=== PATIENT | male | born 1980 | race Caucasian/White ===

== ENCOUNTER 2018-03-15 11:42 | Inpatient (IN) | payer MEDICAID, SELFPAY ==
[2018-03-15 12:14] VITALS: BMI 22.7
--- NOTE | 2018-03-15 12:23 | HP.PCM_ITS ---
Problem List (1) Opiate withdrawal Status: Acute (2) Heroin use Status: Acute History of Present Illness Date of Admission: 03/15/18 Chief Complaint: Nause, vomiting - 1 day The patient is a 37 year old M with past medical history of polysubstance use including heroine use, last used heroin 3 days ago, typically uses 2 g a day, comes in with complaints of diarrhea, hot and cold flashes, nausea, vomiting, muscle pain, nasal congestion ongoing for the past 3 days. Has Cina score on admission is 19. He denied any pain or shortness of breath or palpitation. He has restless legs. Denies any suicidal or homicidal ideation. Past Medical History Allergies No Known Allergies Allergy (Verified 03/15/18 12:21) Surgical History: - - Status post dental surgery, history of stent to the kidney status post removal Psychiatric History: No pertinent psych hx Lives: Alone Smoking Status: Current every day smoker Tobacco Use: Cigarettes Alcohol: None Drugs: Cocaine, Heroin, Marijuana - *Family History Maternal History Items: No pertinent history Paternal History Items: No pertinent history Review of Systems Constitutional: Reports: Anorexia, Chills, Weakness. Denies: Fever, Weight Change Eyes: Denies: Blurred vision, Cataracts, Conjunctivae Inflammation, Redness, Vision Change HEENT: Reports: Nasal Congestion. Denies: Difficulty Swallowing, Head Aches, Hearing Changes, Sinus Congestion, Sinus Drainage, Sore Throat, Visual Changes Cardiovascular: Denies: Chest Pain, Claudication, Chest Pressure, Chest Tightness, Orthopnea, Palpitations, Paroxysmal Noc. Dyspnea Respiratory: Denies: Cough, Hemoptysis, Shortness of breath at rest, Shortness of breath upon exertion, Sputum production Gastrointestinal: Denies: Abdominal Pain, Constipation, Hematemesis, Nausea, Vomiting Genitourinary: Denies: Dysuria, Frequency Musculoskeletal: Denies: Joint Pain, Joint stiffness, Joint swelling, Joint Tenderness Skin: Denies: Rash, Wounds Neurological: Denies: Numbness, Tingling, Focal weakness Psychiatric: Denies: Anxiety, Depression, Homicidal Ideations, Suicidal Ideations Hematologic/ Lymphatic: Denies: Easy Bruising, Easy Bleeding VTE Information - Inpt Only VTE Present on Admission: No VTE Pharm Prophylaxis ordered?: Yes Patient Problems: Active and Suspected Problems Opiate withdrawal (Acute) Heroin use (Acute) - Physical Exam General: Alert, Oriented x3, Cooperative, - - Appears restless, shaking his hands and his legs, HEENT: Atraumatic, PERRLA, EOMI, Normocephalic Oral: Moist Mucosa Neck: Supple, No JVD, Negative Carotid Bruits Lungs: Clear to auscultation, Normal air movement Cardiovascular: Regular rate, Regular Rhythm, Normal S1, Normal S2, No murmurs Abdomen: Bowel Sounds Present, Soft, Non Tender, Non-Distended, No Hepato- splenomegaly Extremities: No edema Skin: No rashes, No breakdown Musculoskeletal: No Tenderness to Palpation of Joints or Extremities Lymphatic: No Cervical, Supraclavicular, or Inguinal Adenopathy Neurological: Cranial nerves II-XII grossly intact, Neuro grossly intact Psych/Mental Status: Appropriate, Anxious, Restless Weight: 75.977 kg Body Mass Index (BMI) 22.7 Assessment/Plan All Active Problems Opiate withdrawal (Acute) Heroin use (Acute) 37 year old M with past medical history of polysubstance use including heroine use, last used heroin 3 days ago, typically uses 2 g a day, comes in with complaints of diarrhea, hot and cold flashes, nausea, vomiting, muscle pain, nasal congestion ongoing for the past 3 days. 1. Acute opiate withdrawal in a known heroin user, uses 2 g of heroin daily, last use of heroin was 3 days ago, here for medical stabilization under the [facility] protocol, continue per protocol. 2. Polysubstance use disorder, advised to quit, patient interested in learning about his hepatitis C and HIV status 3. DVT prophylaxis -early ambulation Code Visit Inpatient E&M: 53817 Init Hosp L2
[2018-03-15] MEDS: cloNIDine HCl 0.1 MG Tablet PO ×2 (12:52→18:39)
[2018-03-15] MEDS: Dicyclomine 10 MG Capsule 20 MG PO ×2 (12:52→18:39)
[2018-03-15] MEDS: Pramipexole Di-HCl 0.25 MG Tablet PO (12:52)
[2018-03-15] MEDS: Methocarbamol 750 MG Tablet PO ×2 (12:52→18:39)
[2018-03-15] MEDS: hydrOXYzine PAM 25 MG Capsule 50 MG PO ×2 (12:52→18:40)
[2018-03-15] MEDS: Buprenorphine HCl 2 MG TAB.SUBL SL ×2 (12:52→20:32)
[2018-03-15 13:26] LABS: Absolute Lymphocyte Count 2.54 X10^3/ul (0.83-4.51); Absolute Neutrophil Count 4.9 X10^3/uL (2.0-7.7); Basophil# 0.03 X10^3/uL; Basophil% 0.4 % (0-1); Eosinophil# 0.14 X10^3/uL; Eosinophils% 1.8 % (0-5); Hematocrit 44.7 % (40-54); Lymphocyte # 2.54 X10^3/ul (4.0); Lymphocyte % 31.8 % (19-41); Mean Corp Hgb Conc 33.6 g/gl (32-36); Mean Corpuscular Hgb 30.1 pg (27.0-32.0); Mean Corpuscular Volume 89.8 fL (80-94); Mean Platelet Vol. 9.3 fl (6.2-12.0); Monocyte# 0.41 X10^3/uL; Monocyte% 5.1 % (0-10); Neutrophil # 4.85 X10^3/uL (2.7-7.7); Neutrophil % 60.8 % (47-70); Platelet Count 140 K/mm3 (150-450); RBC Distribution Width CV 12.5 % (11.6-14.6); Red Blood Count 4.98 M/mm3 (4.6-6.2)
[2018-03-15 13:27] LABS: POSITIVE COUNT NO; POSITIVE DIFFERENTIAL NO; POSITIVE MORPHOLOGY NO
[2018-03-15 14:00] VITALS: BP 104/68; PULSE 52; RESP 16; TEMP 36.9
[2018-03-15 14:19] LABS: ALB/GLOB Ratio 0.8 RATIO (0.9-2.4); AST(SGOT) 14 U/L (15-37); Alanine Aminotransfer ALT/SGPT 25 U/L (16-61); Albumin, Serum 3.3 g/dL (3.2-5.0); Alkaline Phosphatase 59 U/L (45-117); Anion Gap 8 (5-15); BUN 9 mg/dL (7-18); BUN/Creat Ratio 10.5 RATIO (10-20); Calcium,Total 8.3 mg/dL (8.5-10.1); Chloride 107 mmol/L (98-107); Creatinine, Serum 0.86 mg/dL (0.70-1.30); EST Glomerular Filtration Rate 108 mL/min (>60); Est Glom Filt Rate - Afr Amer 131 mL/min (>60); Estimated Creatinine Clearance 128.84 ml/min; Globulin 4.3 g/dL (2.2-4.2); Glucose 112 mg/dL (74-106); Potassium 3.5 mmol/L (3.5-5.1); Protein, Total 7.6 g/dL (6.4-8.2); Sodium Level 140 mmol/L (136-145)
[2018-03-15 15:05] LABS: HIV - WCH Non-Reactive (Nonreactive)
[2018-03-15 18:00] VITALS: BP 111/64; PULSE 67; RESP 16; TEMP 36.7
[2018-03-15] MEDS: Ibuprofen 400 MG Tablet PO (18:40)
[2018-03-15 19:30] LABS: Amphetamine Urine VISTA POSITIVE (<1000 ng/mL); Barbiturate Urine VISTA NEGATIVE (< 200 ng/mL); Benzodiazepine Urine VISTA NEGATIVE (< 200 ng/mL); Cocaine Urine VISTA NEGATIVE (< 300 ng/mL); Ecstacy Urine VISTA NEGATIVE (< 500 ng/mL); Methadone Urine VISTA NEGATIVE (< 300 ng/mL); PCP Urine VISTA NEGATIVE (< 25 ng/mL); THC Urine VISTA NEGATIVE (< 50 ng/mL); Vista UDS pH Range 6
[2018-03-15] MEDS: Senna/Docusate Sodium 1 Tablet 2 TABLET PO (20:33)
[2018-03-15 20:39] VITALS: BP 105/62; PULSE 72; RESP 16; TEMP 36.9
[2018-03-16] VITALS (7 sets, daily range): BP systolic 95–121; BP diastolic 60–68; PULSE 52–72; RESP 16–18; TEMP 36.3–36.8
[2018-03-16] MEDS: Buprenorphine HCl 2 MG TAB.SUBL SL ×3 (04:37→20:19)
[2018-03-16] MEDS: Methocarbamol 750 MG Tablet PO ×2 (07:49→15:07)
[2018-03-16] MEDS: Ibuprofen 400 MG Tablet PO ×2 (07:49→20:24)
[2018-03-16] MEDS: cloNIDine HCl 0.1 MG Tablet PO (07:50)
[2018-03-16] MEDS: hydrOXYzine PAM 25 MG Capsule 50 MG PO (15:06)
[2018-03-16] MEDS: Dicyclomine 10 MG Capsule 20 MG PO (15:06)
[2018-03-16] MEDS: Acetaminophen 325 MG Tablet 650 MG PO (15:07)
--- NOTE | 2018-03-16 15:36 | CHAPLAIN ---
Type of Pastoral Visit _x__ Initial Visit ___ Follow-up Visit ___ On-call Visit ___ General Patient Visit ___ Spiritual Assessment ___ Family Conference ___ Bereavement ___ Rapid Response ___ Code Blue ___ Other (describe below) Pastoral Care Referral From _x__ Patient ___ Family ___ Nurse ___ Physician ___ Levee Superintendent ___ Acid Regenerator ___ Other (describe below) Sacrament/Intervention _x__ Active listening ___ Anointing ___ Jainism ___ Bereavement ___ Communion ___ Paulette exploration ___ _x__ Life review _x__ Prayer ___ Reconciliation ___ Sacrament of Sick _x__ Supportive presence ___ Wedding ___ Other (describe below) Pastoral Comments patient very open to talking about his life, his family, his desires to change his life; pt explains a number of decisions made in last few days that have indicated his desire to overcome his addiction; pt is wanting to go to rehab; pt has two teenage children; pt claims good family support from parents
--- NOTE | 2018-03-16 16:00 | PCM.PN.HOSP ---
Patient Problems: Active and Suspected Problems Opiate withdrawal (Acute) Heroin use (Acute) Subjective: Patient was seen and examined. Denies any new complaints. He feels much better. Denies dizziness or chest pain or palpitations. Objective: Physical Exam General: Alert, Oriented x3, Cooperative, looks comfortable, less restless HEENT: Atraumatic, PERRLA, EOMI, Normocephalic Oral: Moist Mucosa Neck: Supple, No JVD, Negative Carotid Bruits Lungs: Clear to auscultation, Normal air movement Cardiovascular: Regular rate, Regular Rhythm, Normal S1, Normal S2, No murmurs Abdomen: Bowel Sounds Present, Soft, Non Tender, Non-Distended, No Hepato-splenomegaly Extremities: No edema Skin: No rashes, No breakdown Musculoskeletal: No Tenderness to Palpation of Joints or Extremities Lymphatic: No Cervical, Supraclavicular, or Inguinal Adenopathy Neurological: Cranial nerves II-XII grossly intact, Neuro grossly intact Psych/Mental Status: Appropriate, Anxious, Restless Vitals/I&O's: Vital Signs Temp Pulse Resp BP 98.3 F 57 L 18 101/66 03/16/18 15:00 03/16/18 15:00 03/16/18 15:00 03/16/18 15:00 Oxygen Delivery Method Room Air Weight: 75.977 kg Body Mass Index (BMI) 22.7 Intake and Output for Last 24 Hours 03/14/18 03/15/18 03/16/18 23:59 23:59 23:59 Intake Total 750 / 750 Balance 750 / 750 Laboratory Results 03/15/18 18:55: Urine Opiates Screen NEGATIVE, Urine Methadone Screen NEGATIVE, Ur Barbiturates Screen NEGATIVE, Ur Phencyclidine Scrn NEGATIVE, Ur Amphetamines Screen POSITIVE H, U Methamphetamin-MDMA NEGATIVE, U Benzodiazepines Scrn NEGATIVE, Urine Cocaine Screen NEGATIVE, U Cannabinoids Screen NEGATIVE, Ur Drug Screen Comment Current Medications Acetaminophen (Tylenol) 650 mg PO Q6H PRN PRN PRN Reason: Mild Pain (1-3)/Temp > 100.7 F Last Admin: 03/16/18 15:07 Dose: 650 mg Bisacodyl (Dulcolax) 5 mg PO DAILY PRN PRN PRN Reason: Constipation Buprenorphine HCl (Buprenorphine Hcl) 2 mg SL Q8H [facility]; Taper Stop: 03/18/18 16:29 Last Admin: 03/16/18 12:16 Dose: 2 mg Clonidine (Catapres) 0.1 mg PO Q2H PRN PRN PRN Reason: Hot/Cold Sweats or Anxiety Last Admin: 03/16/18 07:50 Dose: 0.1 mg Dicyclomine HCl (Bentyl) 20 mg PO Q6H PRN PRN PRN Reason: Abdomnial Discomfort Last Admin: 03/16/18 15:06 Dose: 20 mg Hydroxyzine HCl (Vistaril Vial) 50 mg IM Q6H PRN PRN PRN Reason: Breakthrough Anxiety Hydroxyzine Pamoate (Vistaril Pamoate Capsule) 50 mg PO Q6H PRN PRN PRN Reason: Mild Anxiety Last Admin: 03/16/18 15:06 Dose: 50 mg Ibuprofen (Motrin) 400 mg PO Q8H PRN PRN Reason: MILD-MOD PAIN (1-5/10) Last Admin: 03/16/18 07:49 Dose: 400 mg Magnesium Hydroxide (Milk Of Magnesia) 30 ml PO DAILY PRN PRN PRN Reason: Constipation Methocarbamol (Methocarbamol) 750 mg PO Q6H PRN PRN PRN Reason: Muscle Aches Last Admin: 03/16/18 15:07 Dose: 750 mg Nicotine (Nicoderm Cq (Pbkc)) 21 mg TRANSDERM. DAILY [facility] Last Admin: 03/16/18 10:36 Dose: 21 mg Nicotine Polacrilex (Rugby Nicotine (Pbkc)) 4 mg PO Q2H PRN PRN PRN Reason: Nicotine Craving Last Admin: 03/16/18 07:51 Dose: 4 mg Nutritional Formula (Lactose Free) (Ensure Clear) 120 ml PO 4X/DAY [facility] Last Admin: 03/16/18 12:59 Dose: 120 ml Ondansetron HCl (Zofran Odt) 4 mg PO Q8H PRN PRN PRN Reason: NAUSEA/VOMITING Pramipexole Dihydrochloride (Mirapex) 0.25 mg PO Q12H PRN PRN PRN Reason: Restless Legs Last Admin: 03/15/18 12:52 Dose: 0.25 mg Psyllium Hydrophilic Mucilloid (Metamucil) 1 packet PO DAILY PRN PRN PRN Reason: CONSTIPATION Senna/Docusate Sodium (Senokot-S, Heaven-Colace) 2 tablet PO BID [facility] Last Admin: 03/16/18 10:37 Dose: Not Given Medical Necessity - Tobacco Use Smoking Status: Current every day smoker Tobacco Use: Cigarettes Assessment/Plan All Active Problems Opiate withdrawal (Acute) Heroin use (Acute) 37 year old M with past medical history of polysubstance use including heroine use, last used heroin 3 days ago, typically uses 2 g a day, comes in with complaints of diarrhea, hot and cold flashes, nausea, vomiting, muscle pain, nasal congestion ongoing for the past 3 days. 1. Acute opiate withdrawal in a known heroin user, improving, last see was score was 6, continue with the [facility] protocol 2. Nicotine use disorder, on nicotine patch and gum. 3. Polysubstance use disorder, advised to quit. 4. DVT prophylaxis -early ambulation Code Visit Inpatient E&M: 50951 Subs Hosp L2
--- NOTE | 2018-03-16 16:12 | PN_ITS ---
Patient Problems: Active and Suspected Problems Opiate withdrawal (Acute) Heroin use (Acute) Subjective: Patient was seen and examined. Denies any new complaints. He feels much better. Denies dizziness or chest pain or palpitations. Objective: Physical Exam General: Alert, Oriented x3, Cooperative, looks comfortable, less restless HEENT: Atraumatic, PERRLA, EOMI, Normocephalic Oral: Moist Mucosa Neck: Supple, No JVD, Negative Carotid Bruits Lungs: Clear to auscultation, Normal air movement Cardiovascular: Regular rate, Regular Rhythm, Normal S1, Normal S2, No murmurs Abdomen: Bowel Sounds Present, Soft, Non Tender, Non-Distended, No Hepato- splenomegaly Extremities: No edema Skin: No rashes, No breakdown Musculoskeletal: No Tenderness to Palpation of Joints or Extremities Lymphatic: No Cervical, Supraclavicular, or Inguinal Adenopathy Neurological: Cranial nerves II-XII grossly intact, Neuro grossly intact Psych/Mental Status: Appropriate, Anxious, Restless Vitals/I&O's: Vital Signs Temp Pulse Resp BP 98.3 F 57 L 18 101/66 03/16/18 15:00 03/16/18 15:00 03/16/18 15:00 03/16/18 15:00 Oxygen Delivery Method Room Air Weight: 75.977 kg Body Mass Index (BMI) 22.7 Intake and Output for Last 24 Hours 03/14/18 03/15/18 03/16/18 23:59 23:59 23:59 Intake Total 750 / 750 Balance 750 / 750 Laboratory Results 03/15/18 18:55: Urine Opiates Screen NEGATIVE, Urine Methadone Screen NEGATIVE, Ur Barbiturates Screen NEGATIVE, Ur Phencyclidine Scrn NEGATIVE, Ur Amphetamines Screen POSITIVE H, U Methamphetamin-MDMA NEGATIVE, U Benzodiazepines Scrn NEGATIVE, Urine Cocaine Screen NEGATIVE, U Cannabinoids Screen NEGATIVE, Ur Drug Screen Comment Current Medications Acetaminophen (Tylenol) 650 mg PO Q6H PRN PRN PRN Reason: Mild Pain (1-3)/Temp > 100.7 F Last Admin: 03/16/18 15:07 Dose: 650 mg Bisacodyl (Dulcolax) 5 mg PO DAILY PRN PRN PRN Reason: Constipation Buprenorphine HCl (Buprenorphine Hcl) 2 mg SL Q8H [facility]; Taper Stop: 03/18/18 16:29 Last Admin: 03/16/18 12:16 Dose: 2 mg Clonidine (Catapres) 0.1 mg PO Q2H PRN PRN PRN Reason: Hot/Cold Sweats or Anxiety Last Admin: 03/16/18 07:50 Dose: 0.1 mg Dicyclomine HCl (Bentyl) 20 mg PO Q6H PRN PRN PRN Reason: Abdomnial Discomfort Last Admin: 03/16/18 15:06 Dose: 20 mg Hydroxyzine HCl (Vistaril Vial) 50 mg IM Q6H PRN PRN PRN Reason: Breakthrough Anxiety Hydroxyzine Pamoate (Vistaril Pamoate Capsule) 50 mg PO Q6H PRN PRN PRN Reason: Mild Anxiety Last Admin: 03/16/18 15:06 Dose: 50 mg Ibuprofen (Motrin) 400 mg PO Q8H PRN PRN Reason: MILD-MOD PAIN (1-5/10) Last Admin: 03/16/18 07:49 Dose: 400 mg Magnesium Hydroxide (Milk Of Magnesia) 30 ml PO DAILY PRN PRN PRN Reason: Constipation Methocarbamol (Methocarbamol) 750 mg PO Q6H PRN PRN PRN Reason: Muscle Aches Last Admin: 03/16/18 15:07 Dose: 750 mg Nicotine (Nicoderm Cq (Pbkc)) 21 mg TRANSDERM. DAILY [facility] Last Admin: 03/16/18 10:36 Dose: 21 mg Nicotine Polacrilex (Rugby Nicotine (Pbkc)) 4 mg PO Q2H PRN PRN PRN Reason: Nicotine Craving Last Admin: 03/16/18 07:51 Dose: 4 mg Nutritional Formula (Lactose Free) (Ensure Clear) 120 ml PO 4X/DAY [facility] Last Admin: 03/16/18 12:59 Dose: 120 ml Ondansetron HCl (Zofran Odt) 4 mg PO Q8H PRN PRN PRN Reason: NAUSEA/VOMITING Pramipexole Dihydrochloride (Mirapex) 0.25 mg PO Q12H PRN PRN PRN Reason: Restless Legs Last Admin: 03/15/18 12:52 Dose: 0.25 mg Psyllium Hydrophilic Mucilloid (Metamucil) 1 packet PO DAILY PRN PRN PRN Reason: CONSTIPATION Senna/Docusate Sodium (Senokot-S, Heaven-Colace) 2 tablet PO BID [facility] Last Admin: 03/16/18 10:37 Dose: Not Given Medical Necessity - Tobacco Use Smoking Status: Current every day smoker Tobacco Use: Cigarettes Assessment/Plan All Active Problems Opiate withdrawal (Acute) Heroin use (Acute) 37 year old M with past medical history of polysubstance use including heroine use, last used heroin 3 days ago, typically uses 2 g a day, comes in with complaints of diarrhea, hot and cold flashes, nausea, vomiting, muscle pain, nasal congestion ongoing for the past 3 days. 1. Acute opiate withdrawal in a known heroin user, improving, last see was score was 6, continue with the [facility] protocol 2. Nicotine use disorder, on nicotine patch and gum. 3. Polysubstance use disorder, advised to quit. 4. DVT prophylaxis -early ambulation Code Visit Inpatient E&M: 91939 Subs Hosp L2
[2018-03-16] MEDS: Pramipexole Di-HCl 0.25 MG Tablet PO (20:24)
[2018-03-16] MEDS: Ondansetron ODT 4 MG Tablet PO (20:24)
[2018-03-17] VITALS (7 sets, daily range): BP systolic 98–115; BP diastolic 64–76; PULSE 53–74; RESP 16; TEMP 36.3–37; O2SAT 100
[2018-03-17] MEDS: Buprenorphine HCl 2 MG TAB.SUBL SL ×2 (04:28→16:29)
--- NOTE | 2018-03-17 07:04 | PCM.PN.HOSP ---
Patient Problems: Active and Suspected Problems Opiate withdrawal (Acute) Heroin use (Acute) Subjective: Patient with no acute events overnight per self and per nursing report. Only noted patient complaint is overnight poor sleep otherwise notes withdrawal symptoms have notably improved. Discussed results including negative HIV testing and noted pending hepatitis panel still. Patient denies fevers, chills, nausea, emesis, abdominal pain, chest pain or dyspnea. Objective: Physical Examination: General: awake, alert, oriented x 3 and cooperative, seated upright in bed in no apparent distress. Skin: normal color, turgor, no icterus, cyanosis. HEENT: AT/NC, EOMI, PERRLA, MMM. Lungs: CTA bilaterally, moderate effort, mild decrease BL bases, no rales, ronchi or wheezing. Heart: Regular rate and rhythm; no gallop, rub audible. Abdomen: soft, NTTP, ND, do not discern HSM. Extremities: no cyanosis, clubbing, or edema. Neurological: patient awake, alert, oriented x 3; cognitive function intact; pupils equally reactive to light and accomodation; cranial nerves II-XII grossly normal, moving all 4 extremities, no focal deficits, strength improved, mildly globally decreased. Psychiatric: affect appears normal, no acute evidence of depressive or anxiety feelings. Vitals/I&O's: Vital Signs Temp Pulse Resp BP 97.8 F 53 L 16 108/64 03/17/18 04:30 03/17/18 04:30 03/17/18 04:30 03/17/18 04:30 Oxygen Delivery Method Room Air Weight: 167 lb 8.01 oz Body Mass Index (BMI) 22.7 Intake and Output for Last 24 Hours 03/15/18 03/16/18 03/17/18 23:59 23:59 23:59 Intake Total 750 / 750 Balance 750 / 750 Current Medications Acetaminophen (Tylenol) 650 mg PO Q6H PRN PRN PRN Reason: Mild Pain (1-3)/Temp > 100.7 F Last Admin: 03/16/18 15:07 Dose: 650 mg Bisacodyl (Dulcolax) 5 mg PO DAILY PRN PRN PRN Reason: Constipation Buprenorphine HCl (Buprenorphine Hcl) 2 mg SL Q12H [facility]; Taper Stop: 03/18/18 16:29 Last Admin: 03/17/18 04:28 Dose: 2 mg Clonidine (Catapres) 0.1 mg PO Q2H PRN PRN PRN Reason: Hot/Cold Sweats or Anxiety Last Admin: 03/16/18 07:50 Dose: 0.1 mg Dicyclomine HCl (Bentyl) 20 mg PO Q6H PRN PRN PRN Reason: Abdomnial Discomfort Last Admin: 03/16/18 15:06 Dose: 20 mg Hydroxyzine HCl (Vistaril Vial) 50 mg IM Q6H PRN PRN PRN Reason: Breakthrough Anxiety Hydroxyzine Pamoate (Vistaril Pamoate Capsule) 50 mg PO Q6H PRN PRN PRN Reason: Mild Anxiety Last Admin: 03/16/18 15:06 Dose: 50 mg Ibuprofen (Motrin) 400 mg PO Q8H PRN PRN Reason: MILD-MOD PAIN (1-5/10) Last Admin: 03/16/18 20:24 Dose: 400 mg Magnesium Hydroxide (Milk Of Magnesia) 30 ml PO DAILY PRN PRN PRN Reason: Constipation Methocarbamol (Methocarbamol) 750 mg PO Q6H PRN PRN PRN Reason: Muscle Aches Last Admin: 03/16/18 15:07 Dose: 750 mg Nicotine (Nicoderm Cq (Pbkc)) 21 mg TRANSDERM. DAILY [facility] Last Admin: 03/16/18 10:36 Dose: 21 mg Nicotine Polacrilex (Rugby Nicotine (Pbkc)) 4 mg PO Q2H PRN PRN PRN Reason: Nicotine Craving Last Admin: 03/16/18 07:51 Dose: 4 mg Nutritional Formula (Lactose Free) (Ensure Clear) 120 ml PO 4X/DAY [facility] Last Admin: 03/16/18 20:20 Dose: Not Given Ondansetron HCl (Zofran Odt) 4 mg PO Q8H PRN PRN PRN Reason: NAUSEA/VOMITING Last Admin: 03/16/18 20:24 Dose: 4 mg Pramipexole Dihydrochloride (Mirapex) 0.25 mg PO Q12H PRN PRN PRN Reason: Restless Legs Last Admin: 03/16/18 20:24 Dose: 0.25 mg Psyllium Hydrophilic Mucilloid (Metamucil) 1 packet PO DAILY PRN PRN PRN Reason: CONSTIPATION Senna/Docusate Sodium (Senokot-S, Heaven-Colace) 2 tablet PO BID [facility] Last Admin: 03/16/18 20:20 Dose: Not Given Medical Necessity - Tobacco Use Smoking Status: Current every day smoker Tobacco Use: Cigarettes Assessment/Plan All Active Problems Opiate withdrawal (Acute) Heroin use (Acute) The patient is a 37 y/o M w/ PMHx: Tobacco use, Polysubstance abuse including Heroin, Cocaine and Cannabis who presents to the [facility] at [facility] on 03/15/18 w/ noted opiate withdrawal onset starting 03/14/18 following last dose Heroin 3 days prior with abdominal pain/cramping, generalized body aches and pains, rhinorrhea, piloerection, fatigue, restless leg, sweating, yawning. (1) Acute Opiate Withdrawal: Admitted to [place], routine labs obtained, hepatitis panel pending, HIV negative, initiated and continued on [facility] service protocol with tapering course of Subutex, as needed Seroquel, Librium, Sinemet, Catapres, Bentyl, Vistaril, IV fluids, IV antiemetics, Tylenol as needed for pain. Once patient clinically improved and completion of taper nearing will plan [facility] assistance for transition to next level of rehabilitation care. (2) Polysubstance Abuse, IVDA Hx: HIV negative, Hepatitis panel pending. If if positive hepatitis C, patient currently not candidate for treatment as needs to be clean, sober x 6 months, documented attendance NA or AA meetings, counseling and ongoing negative drug screens. Encouraged PCP establishment and follow-up. (3) Tobacco Abuse: Encouraged cessation, inpatient consultation per RT, NR if desired. (4) DVT Prophylaxis: Low risk, ambulation. Code Visit Inpatient E&M: 89689 Subs Hosp L2
--- NOTE | 2018-03-17 07:08 | PN_ITS ---
Patient Problems: Active and Suspected Problems Opiate withdrawal (Acute) Heroin use (Acute) Subjective: Patient with no acute events overnight per self and per nursing report. Only noted patient complaint is overnight poor sleep otherwise notes withdrawal symptoms have notably improved. Discussed results including negative HIV testing and noted pending hepatitis panel still. Patient denies fevers, chills, nausea, emesis, abdominal pain, chest pain or dyspnea. Objective: Physical Examination: General: awake, alert, oriented x 3 and cooperative, seated upright in bed in no apparent distress. Skin: normal color, turgor, no icterus, cyanosis. HEENT: AT/NC, EOMI, PERRLA, MMM. Lungs: CTA bilaterally, moderate effort, mild decrease BL bases, no rales, ronchi or wheezing. Heart: Regular rate and rhythm; no gallop, rub audible. Abdomen: soft, NTTP, ND, do not discern HSM. Extremities: no cyanosis, clubbing, or edema. Neurological: patient awake, alert, oriented x 3; cognitive function intact; pupils equally reactive to light and accomodation; cranial nerves II-XII grossly normal, moving all 4 extremities, no focal deficits, strength improved, mildly globally decreased. Psychiatric: affect appears normal, no acute evidence of depressive or anxiety feelings. Vitals/I&O's: Vital Signs Temp Pulse Resp BP 97.8 F 53 L 16 108/64 03/17/18 04:30 03/17/18 04:30 03/17/18 04:30 03/17/18 04:30 Oxygen Delivery Method Room Air Weight: 167 lb 8.01 oz Body Mass Index (BMI) 22.7 Intake and Output for Last 24 Hours 03/15/18 03/16/18 03/17/18 23:59 23:59 23:59 Intake Total 750 / 750 Balance 750 / 750 Current Medications Acetaminophen (Tylenol) 650 mg PO Q6H PRN PRN PRN Reason: Mild Pain (1-3)/Temp > 100.7 F Last Admin: 03/16/18 15:07 Dose: 650 mg Bisacodyl (Dulcolax) 5 mg PO DAILY PRN PRN PRN Reason: Constipation Buprenorphine HCl (Buprenorphine Hcl) 2 mg SL Q12H [facility]; Taper Stop: 03/18/18 16:29 Last Admin: 03/17/18 04:28 Dose: 2 mg Clonidine (Catapres) 0.1 mg PO Q2H PRN PRN PRN Reason: Hot/Cold Sweats or Anxiety Last Admin: 03/16/18 07:50 Dose: 0.1 mg Dicyclomine HCl (Bentyl) 20 mg PO Q6H PRN PRN PRN Reason: Abdomnial Discomfort Last Admin: 03/16/18 15:06 Dose: 20 mg Hydroxyzine HCl (Vistaril Vial) 50 mg IM Q6H PRN PRN PRN Reason: Breakthrough Anxiety Hydroxyzine Pamoate (Vistaril Pamoate Capsule) 50 mg PO Q6H PRN PRN PRN Reason: Mild Anxiety Last Admin: 03/16/18 15:06 Dose: 50 mg Ibuprofen (Motrin) 400 mg PO Q8H PRN PRN Reason: MILD-MOD PAIN (1-5/10) Last Admin: 03/16/18 20:24 Dose: 400 mg Magnesium Hydroxide (Milk Of Magnesia) 30 ml PO DAILY PRN PRN PRN Reason: Constipation Methocarbamol (Methocarbamol) 750 mg PO Q6H PRN PRN PRN Reason: Muscle Aches Last Admin: 03/16/18 15:07 Dose: 750 mg Nicotine (Nicoderm Cq (Pbkc)) 21 mg TRANSDERM. DAILY [facility] Last Admin: 03/16/18 10:36 Dose: 21 mg Nicotine Polacrilex (Rugby Nicotine (Pbkc)) 4 mg PO Q2H PRN PRN PRN Reason: Nicotine Craving Last Admin: 03/16/18 07:51 Dose: 4 mg Nutritional Formula (Lactose Free) (Ensure Clear) 120 ml PO 4X/DAY [facility] Last Admin: 03/16/18 20:20 Dose: Not Given Ondansetron HCl (Zofran Odt) 4 mg PO Q8H PRN PRN PRN Reason: NAUSEA/VOMITING Last Admin: 03/16/18 20:24 Dose: 4 mg Pramipexole Dihydrochloride (Mirapex) 0.25 mg PO Q12H PRN PRN PRN Reason: Restless Legs Last Admin: 03/16/18 20:24 Dose: 0.25 mg Psyllium Hydrophilic Mucilloid (Metamucil) 1 packet PO DAILY PRN PRN PRN Reason: CONSTIPATION Senna/Docusate Sodium (Senokot-S, Heaven-Colace) 2 tablet PO BID [facility] Last Admin: 03/16/18 20:20 Dose: Not Given Medical Necessity - Tobacco Use Smoking Status: Current every day smoker Tobacco Use: Cigarettes Assessment/Plan All Active Problems Opiate withdrawal (Acute) Heroin use (Acute) The patient is a 37 y/o M w/ PMHx: Tobacco use, Polysubstance abuse including Heroin, Cocaine and Cannabis who presents to the [facility] at [facility] on 03/15/18 w/ noted opiate withdrawal onset starting 03/14/18 following last dose Heroin 3 days prior with abdominal pain/cramping, generalized body aches and pains, rhinorrhea, piloerection, fatigue, restless leg, sweating, yawning. (1) Acute Opiate Withdrawal: Admitted to [place], routine labs obtained, hepatitis panel pending, HIV negative, initiated and continued on [facility] service protocol with tapering course of Subutex, as needed Seroquel, Librium, Sinemet, Catapres, Bentyl, Vistaril, IV fluids, IV antiemetics, Tylenol as needed for pain. Once patient clinically improved and completion of taper nearing will plan [facility] assistance for transition to next level of rehabilitation care. (2) Polysubstance Abuse, IVDA Hx: HIV negative, Hepatitis panel pending. If if positive hepatitis C, patient currently not candidate for treatment as needs to be clean, sober x 6 months, documented attendance NA or AA meetings, counseling and ongoing negative drug screens. Encouraged PCP establishment and follow-up. (3) Tobacco Abuse: Encouraged cessation, inpatient consultation per RT, NR if desired. (4) DVT Prophylaxis: Low risk, ambulation. Code Visit Inpatient E&M: 05011 Subs Hosp L2
[2018-03-17] MEDS: cloNIDine HCl 0.1 MG Tablet PO ×3 (08:03→20:47)
[2018-03-17] MEDS: chlordiazePOXIDE 25 MG Capsule PO (12:23)
[2018-03-17] MEDS: Dicyclomine 10 MG Capsule 20 MG PO ×2 (12:23→20:47)
[2018-03-17] MEDS: Ondansetron ODT 4 MG Tablet PO (12:23)
--- NOTE | 2018-03-17 15:53 | CHAPLAIN ---
Type of Pastoral Visit ___ Initial Visit _x__ Follow-up Visit ___ On-call Visit ___ General Patient Visit ___ Spiritual Assessment ___ Family Conference ___ Bereavement ___ Rapid Response ___ Code Blue ___ Other (describe below) Pastoral Care Referral From _x__ Patient ___ Family ___ Nurse ___ Physician ___ Needle Polisher ___ Converting Operator ___ Other (describe below) Sacrament/Intervention _x__ Active listening ___ Anointing ___ Samaritan ___ Bereavement ___ Communion _x__ Paulette exploration ___ _x__ Life review _x__ Prayer ___ Reconciliation ___ Sacrament of Sick _x__ Supportive presence ___ Wedding ___ Other (describe below) Pastoral Comments patient admits to feelings of anxiety; pt has a plan for recovery but is fearful about meeting with his PO; time given to listen to pt express his fears and hopes; pt reveals that he was [place] in [place] and [employer]; pt reveals his thoughts that God has spared his life and brought him to this facility for recovery; pt welcomes prayer support
[2018-03-17] MEDS: Methocarbamol 750 MG Tablet PO (20:47)
[2018-03-17] MEDS: Pramipexole Di-HCl 0.25 MG Tablet PO (20:47)
[2018-03-17] MEDS: traZODone 50 MG Tablet PO (21:05)
[2018-03-18 04:11] VITALS: BP 101/66; PULSE 64; RESP 14; TEMP 36.6
[2018-03-18] MEDS: Buprenorphine HCl 2 MG TAB.SUBL SL (04:15)
[2018-03-18] MEDS: Acetaminophen 325 MG Tablet 650 MG PO (04:16)
[2018-03-18] MEDS: Dicyclomine 10 MG Capsule 20 MG PO (04:16)
[2018-03-18] MEDS: Methocarbamol 750 MG Tablet PO (04:16)
[2018-03-18] MEDS: chlordiazePOXIDE 25 MG Capsule PO (04:16)
[2018-03-18] MEDS: Ondansetron ODT 4 MG Tablet PO (04:16)
--- NOTE | 2018-03-18 07:20 | DCINST_ITS ---
- Discharge Diagnoses Current Active Problems: Current Active and Chronic Problems (1) Acute Opiate Withdrawal (2) Polysubstance Abuse, IVDA Hx, HIV negative, Hepatitis panel pending at discharge (3) Tobacco Abuse You will use the following diet at home:: Regular Your food should be the consistency of: Regular Your liquids should be the consistency of: Regular/Thin Discharge Activity: Return to Normal Activity May resume sexual activity in: - - Please await your hepatitis panel results and review with your primary care physician prior to resumption of sexual intercourse. Weight Bearing Status: Weight bearing as tolerated Call your doctor if you observe: Fever of 101 or Higher, Inability to urinate, Inability to have a bowel movement, Shortness of breath, Dizziness, Fainting spells, Chest pain, Uncontrolled pain Instructions: ED Narcotic Abuse, Understanding Heroin Abuse and Addiction, Treating Heroin Addiction Additional Instructions: During admission we checked your HIV and hepatitis status. Your HIV resulted negative but upon discharge your hepatitis panel was still pending. Please review these results with your primary care physician upon discharge once resulted. Allergies/Adverse Reactions: Allergies No Known Allergies Allergy (Verified 03/15/18 12:21) Primary Care Physician: Care Physician,No Primary [Primary Care Provider] - Please follow up with your Primary Care Physician in: Please establish with primary care and follow-up within 3-5 days to review. Test Results: Test results from this visit will be discussed in further detail at your follow- up appointment, if applicable. Please Follow Up With: [facility] When: Please continue with [facility] discharge plan. Proposed Discharge Date: 03/18/18
--- NOTE | 2018-03-18 07:20 | PCM.DC.SUM ---
Discharge Date and Diagnosis - Problem List Patient Problems: Active and Suspected Problems Opiate withdrawal (Acute) Heroin use (Acute) Date of Admission: 03/15/18 Date of Discharge: 03/18/18 - Primary Discharge Diagnosis Active and Suspected Problems (1) Acute Opiate Withdrawal (2) Polysubstance Abuse, IVDA Hx, HIV negative, Hepatitis panel pending at discharge (3) Tobacco Abuse - Secondary Discharge Diagnosis (1) Opiate Abuse (2) Polysubstance Abuse, IVDA Hx (3) Tobacco Abuse Hospital Course and Treatment Operations: None Procedures: None Summary of Care Provided: The patient is a 37 y/o M w/ PMHx: Tobacco use, Polysubstance abuse including Heroin, Cocaine and Cannabis who presented to the [facility] at [facility] on 03/15/18 w/ noted opiate withdrawal onset starting 03/14/18 following last dose Heroin 3 days prior with abdominal pain/cramping, generalized body aches and pains, rhinorrhea, piloerection, fatigue, restless leg, sweating, yawning. Admitted to MD, routine labs obtained, hepatitis panel pending at discharge, HIV negative, initiated and continued on [facility] service protocol with tapering course of Subutex, as needed Seroquel, Librium, Sinemet, Catapres, Bentyl, Vistaril, IV fluids, IV antiemetics, Tylenol as needed for pain. Once patient clinically improved and completed of taper transitioned to [facility] assistance for transition to next level of rehabilitation care. Noted to patient if hepatitis C results positive following review with PCP, patient currently not candidate for treatment as needs to be clean, sober x 6 months, documented attendance NA or AA meetings, counseling and ongoing negative drug screens. Encouraged strongly PCP establishment and follow-up. Also, encouraged tobacco cessation, inpatient consultation per RT. DAY OF DISCHARGE PROGRESS NOTE: Subjective: Patient without acute event overnight per self and nursing report. Patient denies fever, chills, nausea, emesis, abdominal pain, chest pain or dyspnea. He notes he slept much better. Patient agreeable to discharge to home w/ next step in [facility] plan. Patient will be discharged with follow-up with primary care physician within 3-5 days to review hepatitis panel as pending at discharge in addition to ongoing [facility] discharge plan. Objective: T 97.9, HR 64, BP 101/66, RR 14, 100% on RA. Physical Examination: General: awake, alert, oriented x 3 and cooperative, seated upright in the bed, NAD, more refreshed appearing. Skin: normal color, turgor, no icterus, cyanosis. HEENT: AT/NC, EOMI, PERRLA, MMM. Lungs: CTA bilaterally, moderate effort, mild decrease BL bases, no rales, ronchi or wheezing; Heart: Regular rate and rhythm; no gallop, rub audible. Abdomen: soft, NTTP, ND, normal BS. Extremities: no cyanosis, clubbing, or edema. Neurological: patient awake, alert, oriented x 3; cognitive function appears intact upon questioning,; pupils equally reactive to light and accomodation; cranial nerves II-XII grossly normal, moving all 4 extremities, strength appropriate. Psychiatric: affect appears normal, no acute evidence of depressive or anxiety feelings. Assessment and Plan: Please see hospital summary above. Discharge Activity: Return to Normal Activity May resume sexual activity in: - - Please await your hepatitis panel results and review with your primary care physician prior to resumption of sexual intercourse. Weight Bearing Status: Weight bearing as tolerated Call your doctor if you observe: Fever of 101 or Higher, Inability to urinate, Inability to have a bowel movement, Shortness of breath, Dizziness, Fainting spells, Chest pain, Uncontrolled pain Primary Care Physician: Care Physician,No Primary [Primary Care Provider] - Please follow up with your Primary Care Physician in: Please establish with primary care and follow-up within 3-5 days to review. Please Follow Up With: [facility] When: Please continue with [facility] discharge plan. Patient Instructions: Understanding Heroin Abuse and Addiction, Treating Heroin Addiction, ED Narcotic Abuse Disposition: Home Minutes spent on discharge:: 35 Patient Condition:: Fair Medical Necessity - Tobacco Use Smoking Status: Current every day smoker Tobacco Use: Cigarettes Meaningful Use Info Meaningful Use Diagnoses (Choose all that apply): None applicable Code Visit Inpatient E&M: 39357 Disch Hosp
[2018-03-18 07:48] VITALS: BP 123/68; PULSE 57; RESP 18; TEMP 36.4
[2018-03-18] MEDS: hydrOXYzine PAM 25 MG Capsule 50 MG PO (08:16)
--- NOTE | 2018-03-18 08:57 | CASEMGMT ---
PCP list provided to pt of doctors near where patient lives that take pt's insurance. MARISA Whiteside, PROVISIONING ANALYST
[2018-03-21 20:08] LABS: Hepatitis A IgM Antibody Negative (Negative)
[2018-03-22 08:43] LABS: Hep C Antibodies >11.0 s/co ratio (0.0-0.9)
== END 2018-03-18 10:05 | disposition home or self-care (01) | DRG 435 ==
PROVIDERS: Admitting Provider Internal Medicine; Referring Provider Internal Medicine; Visit Provider Family Medicine
DX: F11.23 Opioid dependence with withdrawal (principal); F17.210 Nicotine dependence, cigarettes, uncomplicated; F12.10 Cannabis abuse, uncomplicated
CPT/HCPCS: 80053; 80074; 80307; 85025; 86703; 97802; 99406